=== PATIENT | male | born 1950 | race Native Hawaiian/Other Pacific Islander ===

== ENCOUNTER 2019-05-07 21:01 | Inpatient (IN) | payer MEDICARE, MEDICAID ==
[~2019-05-07] VITALS: Ht 182.9 cm; Wt 86.6 kg
[~2019-05-07 21:01] MED LIST: levetiracetam-NS 1000mg/100ml 100 ML IV ONE
--- NOTE | 2019-05-07 21:12 | NUR ---
arrived for level 1 stroke with last known well at 1999 per pts son. Pt found confused with left sided weakness at 2014 and pt was found incontinent of urine.H/O prior stroke, traumatic head injury with brain bleeding some 5 years ago. Current smoker, seizure history, on Keppra and dilantin. Currently pt is awake, confused, oriented to person, knows age, not month of year. Moves right side well, unable to move left leg, no movement against gravity. Able to move left hand off bed and bend at elbow cannot lift arm off bed. Able to track side to side. 2119 Tele neuro exam with Dr Majano began. Family summoned to bedside. Last known well has changed to 193. [address] for CTA per neurology recommendation. 0 Improving left arm strength, able to voluntarily lift left arm off bed, no change left leg. 2230 Sensory loss left face, arm and leg, extinguishes on the left over face,arm and leg. No field cut noted. 223 call to soc to report findings. 2240 pt seen lifting left leg, did no to command twice, lift and held for 5 seconds. Repeat consult cancelled for now. family at bedside.
[2019-05-07 21:27] LABS: HEMOGLOBIN 17.1 g/dl (14.0-17.9); NEUTROPHILS # (AUTO) 9.7 X10'3 (1.8-7.7)
[2019-05-07 21:29] LABS: ALANINE AMINOTRANSFERASE 41 U/L (12-78); ALBUMIN 3.6 G/DL (3.4-5.0); ALBUMIN/GLOBULIN RATIO 0.8 (1.1-1.5); ALKALINE PHOSPHATASE 82 IU/L (46-116); ANION GAP 5 (8-16); ASPARTATE AMINO TRANSFERASE 29 U/L (10-37); BASOPHILS % (AUTO) 0.3 % (0-1); BILIRUBIN,TOTAL 0.3 MG/DL (0.1-1.0); BLOOD UREA NITROGEN 17 MG/DL (7-18); BUN/CREATININE RATIO 15.9 (5.4-32.0); CALCIUM 8.6 MG/DL (8.5-10.1); CHLORIDE 103 MMOL/L (99-107); CREATININE 1.07 MG/DL (0.60-1.10); EOSINOPHILS % (AUTO) 0.1 % (0-6); GLUCOSE 134 MG/DL (70-104); HEMATOCRIT 51.5 % (42.0-52.0); LYMPHOCYTES # (AUTO) 0.9 X10'3 (1.1-4.8); LYMPHOCYTES % (AUTO) 8.5 % (21-51); MEAN CORPUSCULAR HEMOGLOBIN 32.6 PG (27.0-31.0); MEAN CORPUSCULAR HGB CONC 33.3 g/dL (33.0-36.5); MEAN PLATELET VOLUME 8.1 FL (7.4-10.4); MONOCYTES # (AUTO) 0.5 X10'3 (0-0.9); MONOCYTES % (AUTO) 4.2 % (2-12); NEUTROPHILS % (AUTO) 86.9 % (42-75); PLATELET COUNT 248 X10'3 (140-440); POTASSIUM 4.3 MMOL/L (3.5-5.1); RED BLOOD COUNT 5.25 X10'6 (4.70-6.10); RED CELL DISTRIBUTION WIDTH 13.7 % (11.5-14.5); SODIUM 141 MMOL/L (135-145); TOTAL CARBON DIOXIDE 33.1 MMOL/L (24-32); TOTAL PROTEIN 7.9 G/DL (6.4-8.2); WHITE BLOOD COUNT 11.1 X10'3 (4.5-11.0); eGFR 69 ML/MIN
[2019-05-07 21:30] LABS: PARTIAL THROMBOPLASTIN TIME 28 SECONDS (22-32)
[2019-05-07 21:33] LABS: TROPONIN I 0.16 NG/ML (0.0-0.05)
[2019-05-07] MEDS ORDERED: iohexol 350MG/ML 100ml bottle IV ONE (21:51)
[2019-05-07] MEDS ORDERED: nitroGLYCERIN 0.4mg/hour patch TD ONE (22:20)
[2019-05-07 22:23] LABS: PHENYTOIN (DILANTIN) 19.4 UG/ML (10.0-20.0)
[2019-05-07 22:38] LABS: CLARITY,URINE CLEAR (Clear); COLOR,URINE YELLOW (Yellow); GLUCOSE, URINE NEGATIVE (Neg); KETONES,URINE NEGATIVE (Neg); LEUKOCYTE ESTERASE ,URINE NEGATIVE (Neg); NITRITES, URINE NEGATIVE (Neg); OCCULT BLOOD,URINE TRACE-INTACT (Neg); PH,URINE 7.5 (4.8-8.0); PROTEIN,URINE TRACE mg/dl (Neg); UROBILINOGEN,URINE 0.2 E.U/dL (0.2-1.0)
[2019-05-07 22:42] LABS: URINE AMPHETAMINE SCREEN NEGATIVE (Neg); URINE BARBITUATE SCREEN NEGATIVE (Neg); URINE BENZODIAZEPINES SCREEN NEGATIVE (Neg); URINE CANNABINOID SCREEN NEGATIVE (Neg); URINE COCAINE SCREEN NEGATIVE (Neg); URINE METHADONE SCREEN NEGATIVE (Neg); URINE OPIATE SCREEN NEGATIVE (Neg); URINE PHENCYCLIDINE SCREEN NEGATIVE (Neg)
[2019-05-07 22:44] LABS: UA COLLECTION TYPE STRAIGHT CATH
[2019-05-07 22:46] LABS: AMORPHOUS PHOSPHATES 1+; BACTERIA,URINE NONE SEEN /HPF (Neg); MUCUS STRANDS NONE SEEN /LPF (Neg); RBC,URINE 0-2 /HPF (0-2); SQUAMOUS EPITHELIAL CELL,UR NONE SEEN /LPF (FEW); WBC,URINE 0-4 /HPF (0-4)
[2019-05-07] MEDS ORDERED: aspirin 81mg tab.chew PO ONE (23:05)
[2019-05-07] MEDS ORDERED: acetaminophen 325mg tablet PO ONE (23:10)
--- NOTE | 2019-05-07 23:32 | NUR ---
Family updated on POC. Patient is resting comfortably in bed at this time.
[2019-05-07] MEDS ORDERED: potassium CL 10mEq/100ml bag 100 ML IV PRN ×2 (23:45)
[2019-05-07] MEDS ORDERED: magnesium 2GM in 50ml NS 50 ML IV PRN (23:45)
[2019-05-07] MEDS ORDERED: ondansetron/PF 4mg/2ml inj IV PRN (23:45)
[2019-05-07] MEDS ORDERED: magnesium Cl slow-release 64mg tablet PO PRN (23:45)
[2019-05-07] MEDS ORDERED: magnesium 4gm in 100ml NS 100 ML IV PRN (23:45)
[2019-05-07] MEDS ORDERED: potassium Cl 20 mEq SR tablet PO PRN ×2 (23:45)
--- NOTE | 2019-05-08 | NUR ---
1240 bedside report to Elaine.
[2019-05-08] MEDS ORDERED: LEVE100S PO (00:15)
[2019-05-08] MEDS ORDERED: PHEN100C4 PO (00:15)
[2019-05-08 00:47] VITALS: BP 114/72
[2019-05-08] MEDS: LORazepam 2 mg/ml vial IV PRN ×2 (01:49→08:36)
[2019-05-08 02:00] VITALS: BP 114/63
[2019-05-08 03:32] LABS: BASOPHILS # (AUTO) 0.1 X10'3 (0-0.2); BASOPHILS % (AUTO) 0.8 % (0-1); EOSINOPHILS # (AUTO) 0.1 X10'3 (0-0.9); EOSINOPHILS % (AUTO) 0.4 % (0-6); HEMOGLOBIN 15.7 g/dl (14.0-17.9); LYMPHOCYTES # (AUTO) 3.5 X10'3 (1.1-4.8); LYMPHOCYTES % (AUTO) 24.4 % (21-51); MEAN CORPUSCULAR HEMOGLOBIN 32.5 PG (27.0-31.0); MEAN CORPUSCULAR HGB CONC 33.3 g/dL (33.0-36.5); MEAN CORPUSCULAR VOLUME 97.4 FL (78-98); MEAN PLATELET VOLUME 7.5 FL (7.4-10.4); MONOCYTES # (AUTO) 1.3 X10'3 (0-0.9); MONOCYTES % (AUTO) 9.2 % (2-12); NEUTROPHILS # (AUTO) 9.3 X10'3 (1.8-7.7); NEUTROPHILS % (AUTO) 65.2 % (42-75); PLATELET COUNT 229 X10'3 (140-440); RED BLOOD COUNT 4.82 X10'6 (4.70-6.10); RED CELL DISTRIBUTION WIDTH 13.3 % (11.5-14.5); WHITE BLOOD COUNT 14.3 X10'3 (4.5-11.0)
[2019-05-08 03:49] LABS: ALBUMIN 3.2 G/DL (3.4-5.0); ANION GAP 8 (8-16); BLOOD UREA NITROGEN 19 MG/DL (7-18); BUN/CREATININE RATIO 19.4 (5.4-32.0); CALCIUM 8.1 MG/DL (8.5-10.1); CHLORIDE 103 MMOL/L (99-107); CREATININE 0.98 MG/DL (0.60-1.10); GLUCOSE 132 MG/DL (70-104); POTASSIUM 3.9 MMOL/L (3.5-5.1); SODIUM 138 MMOL/L (135-145); TOTAL CARBON DIOXIDE 27.5 MMOL/L (24-32); eGFR 77 ML/MIN
--- NOTE | 2019-05-08 06:35 | NUR ---
Problems reprioritized. Patient report given, questions answered & plan of care reviewed with fercho Alexander.
[2019-05-08 07:01] VITALS: BP 109/63
[2019-05-08] MEDS: K and/or MAG REPLACEMENT MC SCH (08:00)
[2019-05-08 10:00] VITALS: BP 113/63
[2019-05-08] MEDS ORDERED: CefTRIAXone/D5W-Rocephin 1gm 50 ML IV ONE (10:30)
[2019-05-08] MEDS ORDERED: phenytoin sod ER 100mg capsule PO SCH (10:35)
[2019-05-08] MEDS ORDERED: levetiracetam inj 500 MG in normal saline 100ml IV soln 95 ML IV ONE ×2 (10:35→11:00)
[2019-05-08] MEDS ORDERED: LEVE500T PO (10:53)
[2019-05-08] MEDS ORDERED: LORazepam 2 mg/ml vial IM ONE (11:25)
[2019-05-08] MEDS ORDERED: aspirin 81mg tablet.DR PO ONE (15:35)
--- NOTE | 2019-05-08 15:49 | NUR ---
MRI + for subacute infarct left frontal lobe. Spoke with Dr Bond. He will add Plavix as pt has been on 81mg ASA at home for some time. Dr Diane will order lipid profile. Pt strength improving. Able to lift both left arm and leg off bed and hold, the arm for 10 sec, the leg for 5, though drift seen in both. Sedated for MRI, generally drowzy but will follow simple commands. Addendum: 05/08/19 at 1558 by Mary Yun RN Of note, right frontal lobe subacute infarct, not left.
[2019-05-08 16:18] LABS: CHOL/HDL RATIO 2.9 (0.00-4.99); CHOLESTEROL 164 MG/DL (0-200); HDL CHOLESTEROL 56 MG/DL (35-60); LDL CHOLESTEROL 98 MG/DL (50-100); TRIGLYCERIDES 96 MG/DL (20-135)
[2019-05-08] MEDS: clopidogrel 75mg tablet PO SCH (17:38)
[2019-05-08 18:00] VITALS: BP 105/58
[2019-05-08] MEDS ORDERED: levetiracetam inj 500 MG in normal saline 100ml IV soln 95 ML IV SCH (20:00)
[2019-05-08] MEDS: phenytoin sod ER 100mg capsule PO SCH (20:11)
[2019-05-08] MEDS: lactobacillus rhamnosus 10,000 MMU CELLS/CAPSULE PO SCH (20:12)
[2019-05-08] MEDS: levetiracetam 250mg tablet PO SCH (20:12)
[2019-05-08] MEDS: famotidine 20mg tablet PO SCH (20:51)
[2019-05-08 22:00] VITALS: BP 117/70
[2019-05-09 02:00] VITALS: BP 129/72
[2019-05-09 06:00] VITALS: BP 128/75
--- NOTE | 2019-05-09 06:15 | NUR ---
Patient in room ORTH[facility] 4010. I have received report from YOAN Costello and had the opportunity to ask questions and assume patient care.
--- NOTE | 2019-05-09 06:30 | NUR ---
Patient in room ORTHO 4010. I have received report from PAULA MILTON and had the opportunity to ask questions and assume patient care.
[2019-05-09] MEDS: CefTRIAXone/D5W-Rocephin 1gm 50 ML IV SCH (07:46)
[2019-05-09] MEDS: lactobacillus rhamnosus 10,000 MMU CELLS/CAPSULE PO SCH ×2 (07:46→20:00)
[2019-05-09] MEDS: levetiracetam 250mg tablet PO SCH ×2 (07:47→21:22)
[2019-05-09] MEDS: clopidogrel 75mg tablet PO SCH (07:47)
[2019-05-09] MEDS: aspirin 81mg tablet.DR PO SCH (07:47)
[2019-05-09] MEDS: phenytoin sod ER 100mg capsule PO SCH ×2 (07:47→21:21)
[2019-05-09] MEDS: K and/or MAG REPLACEMENT MC SCH (08:00)
--- NOTE | 2019-05-09 08:10 | NUR ---
PATIENT HAD AN EPISODE OF STARING OFF, UNRESPONSIVE AND TEARFUL. TURNED OVER ON HIS SIDE AND CURLED UP IN A BALL. ATIVAN WAS GIVEN PER ORDERS FOR SEIZURE. PATIENT AWOKE 10 MINUTES LATE TO USE THE URINAL. STATED HE HAD A SEIZURE. HE STATED HE CAN FEEL IT COMING ON BUT IS UNABLE TO COMMUNICATE TO STAFF. NOTIFIED. WILL CONTINUE TO MONITOR.
[2019-05-09] MEDS: LORazepam 2 mg/ml vial IV PRN ×3 (08:15→23:04)
[2019-05-09 08:41] LABS: BASOPHILS # (AUTO) 0.1 X10'3 (0-0.2); BASOPHILS % (AUTO) 0.5 % (0-1); EOSINOPHILS # (AUTO) 0.1 X10'3 (0-0.9); EOSINOPHILS % (AUTO) 0.5 % (0-6); HEMATOCRIT 45.5 % (42.0-52.0); HEMOGLOBIN 15.1 g/dl (14.0-17.9); LYMPHOCYTES # (AUTO) 2.4 X10'3 (1.1-4.8); LYMPHOCYTES % (AUTO) 18.4 % (21-51); MEAN CORPUSCULAR HEMOGLOBIN 32.7 PG (27.0-31.0); MEAN CORPUSCULAR HGB CONC 33.2 g/dL (33.0-36.5); MEAN CORPUSCULAR VOLUME 98.3 FL (78-98); MEAN PLATELET VOLUME 7.7 FL (7.4-10.4); MONOCYTES # (AUTO) 1.3 X10'3 (0-0.9); MONOCYTES % (AUTO) 10.1 % (2-12); NEUTROPHILS # (AUTO) 9.1 X10'3 (1.8-7.7); NEUTROPHILS % (AUTO) 70.5 % (42-75); PLATELET COUNT 208 X10'3 (140-440); RED BLOOD COUNT 4.62 X10'6 (4.70-6.10); RED CELL DISTRIBUTION WIDTH 13.5 % (11.5-14.5); WHITE BLOOD COUNT 12.9 X10'3 (4.5-11.0)
[2019-05-09 08:43] LABS: ANION GAP 7 (8-16); BLOOD UREA NITROGEN 14 MG/DL (7-18); BUN/CREATININE RATIO 17.5 (5.4-32.0); CALCIUM 8.1 MG/DL (8.5-10.1); CHLORIDE 104 MMOL/L (99-107); GLUCOSE 158 MG/DL (70-104); MAGNESIUM 1.9 MG/DL (1.5-2.4); POTASSIUM 3.8 MMOL/L (3.5-5.1); SODIUM 139 MMOL/L (135-145); TOTAL CARBON DIOXIDE 28.3 MMOL/L (24-32); eGFR > 90 ML/MIN
--- NOTE | 2019-05-09 09:09 | NUR ---
promotional table spacer PAGER ID: [phone] MESSAGE: NURIA [id number] RE: [facility] [id number] PATIENT HAD A SEIZURE LIKE EPISODE THIS AM. NO EEG ORDERED.
[2019-05-09 10:00] VITALS: BP 132/77
[2019-05-09] MEDS ORDERED: atorvastatin 20mg tablet PO SCH (11:25)
[2019-05-09 14:00] VITALS: BP 119/72
--- NOTE | 2019-05-09 14:11 | NUR ---
Dr Diane requested SOC follow up for seizure and stroke care. Consult set up with service. Necessary paper work faxed as requested.
--- NOTE | 2019-05-09 16:45 | NUR ---
PATIENT HAD A SEIZURE THAT LASTED 3 MINUTES. NO INJURIES ACQUIRED. ATIVAN GIVEN.
--- NOTE | 2019-05-09 17:58 | NUR ---
Student documentation: I have reviewed and agree with all interventions, assessments performed and documented by RICHY MILTON.
[2019-05-09 18:00] VITALS: BP 124/73
--- NOTE | 2019-05-09 18:10 | NUR ---
Problems reprioritized. Patient report given, questions answered & plan of care reviewed with YOAN Hernandez.
--- NOTE | 2019-05-09 19:00 | NUR ---
Patient in room ORTHO 4010. I have received report from Rasheed MILTON and had the opportunity to ask questions and assume patient care.
[2019-05-09] MEDS: metoprolol tartrate 12.5mg (1/2 tablet) PO SCH (21:20)
[2019-05-09] MEDS: famotidine 20mg tablet PO SCH (21:22)
[2019-05-09 22:00] VITALS: BP 127/70
--- NOTE | 2019-05-09 22:30 | NUR ---
Family came out of the room and said the pt was having a seizure. PT was laying in bed nonresponsive fro 6 minutes, Pt received IV ativan., he later started to wake up and regained consciousness within a half hour he then wanted to get out of bed ad "take a walk" setting off his bed alarm. had an aide sit at his bedside.
[2019-05-10 06:00] VITALS: BP 138/93
[2019-05-10 06:27] LABS: ALBUMIN 2.8 G/DL (3.4-5.0); ANION GAP 7 (8-16); BLOOD UREA NITROGEN 13 MG/DL (7-18); BUN/CREATININE RATIO 17.6 (5.4-32.0); CALCIUM 8.1 MG/DL (8.5-10.1); CHLORIDE 108 MMOL/L (99-107); CREATININE 0.74 MG/DL (0.60-1.10); GLUCOSE 114 MG/DL (70-104); MAGNESIUM 1.9 MG/DL (1.5-2.4); SODIUM 143 MMOL/L (135-145); TOTAL CARBON DIOXIDE 27.9 MMOL/L (24-32); eGFR > 90 ML/MIN
[2019-05-10 06:30] LABS: POTASSIUM 4.2 MMOL/L (3.5-5.1)
--- NOTE | 2019-05-10 06:30 | NUR ---
Patient in room ORTHO 4010. I have received report from David MILTON and had the opportunity to ask questions and assume patient care.
[2019-05-10 06:31] LABS: BASOPHILS % (AUTO) 0.4 % (0-1); EOSINOPHILS # (AUTO) 0.2 X10'3 (0-0.9); EOSINOPHILS % (AUTO) 2.3 % (0-6); HEMOGLOBIN 15.1 g/dl (14.0-17.9); LYMPHOCYTES # (AUTO) 2.2 X10'3 (1.1-4.8); MEAN CORPUSCULAR HEMOGLOBIN 32.8 PG (27.0-31.0); MEAN CORPUSCULAR HGB CONC 33.5 g/dL (33.0-36.5); MEAN CORPUSCULAR VOLUME 97.9 FL (78-98); MEAN PLATELET VOLUME 7.7 FL (7.4-10.4); MONOCYTES # (AUTO) 1.3 X10'3 (0-0.9); MONOCYTES % (AUTO) 12.4 % (2-12); NEUTROPHILS # (AUTO) 6.7 X10'3 (1.8-7.7); NEUTROPHILS % (AUTO) 63.9 % (42-75); PLATELET COUNT 201 X10'3 (140-440); RED CELL DISTRIBUTION WIDTH 13.2 % (11.5-14.5); WHITE BLOOD COUNT 10.5 X10'3 (4.5-11.0)
[2019-05-10 07:01] VITALS: BP 138/93
--- NOTE | 2019-05-10 07:17 | NUR ---
PAGER ID: [phone] MESSAGE: NURIA [id number] RE: FAUSTO CRESPO HAS RECOMMENDATIONS FOR INCREASING SEIZURE MEDS. BILLIE I ADD THOSE?
[2019-05-10] MEDS ORDERED: atorvastatin 20mg tablet PO SCH (08:00)
[2019-05-10] MEDS: K and/or MAG REPLACEMENT MC SCH (08:00)
[2019-05-10] MEDS ORDERED: levetiracetam 250mg tablet PO SCH (08:00)
[2019-05-10] MEDS: CefTRIAXone/D5W-Rocephin 1gm 50 ML IV SCH (08:16)
[2019-05-10] MEDS: lactobacillus rhamnosus 10,000 MMU CELLS/CAPSULE PO SCH (08:16)
[2019-05-10] MEDS: clopidogrel 75mg tablet PO SCH (08:16)
[2019-05-10] MEDS: phenytoin sod ER 100mg capsule PO SCH (08:17)
[2019-05-10] MEDS: aspirin 81mg tablet.DR PO SCH (08:18)
[2019-05-10] MEDS: metoprolol tartrate 12.5mg (1/2 tablet) PO SCH (08:20)
[2019-05-10 08:43] LABS: HEMOGLOBIN A1C 5.8 % (4.5-6.2)
[2019-05-10 10:13] VITALS: BP 140/87
== END 2019-05-10 14:36 | DRG 65 ==
LOC: ER 21:02 → OBSVTOIN 23:45 → ORTHO 4S 23:45 → CMPBEDREQ 05-08 00:54
PROVIDERS: ADMIT Internal Medicine; ATTEND Family Medicine
PROC: B3251ZZ Computerized Tomography (CT Scan) of Bilateral Common Carotid Arteries using Low Osmolar Contrast (ICD-10-PCS; 2019-05-07)
PROC: B32G1ZZ Computerized Tomography (CT Scan) of Bilateral Vertebral Arteries using Low Osmolar Contrast (ICD-10-PCS; 2019-05-07)
PROC: B3281ZZ Computerized Tomography (CT Scan) of Bilateral Internal Carotid Arteries using Low Osmolar Contrast (ICD-10-PCS; 2019-05-07)
PROC: 4A10X4Z Monitoring of Central Nervous Electrical Activity, External Approach (ICD-10-PCS; principal; 2019-05-10)
DX: I63.9 Cerebral infarction, unspecified (principal); G81.94 Hemiplegia, unspecified affecting left nondominant side; G40.409 Other generalized epilepsy and epileptic syndromes, not intractable, without status epilepticus; D72.829 Elevated white blood cell count, unspecified; E78.5 Hyperlipidemia, unspecified; F17.290 Nicotine dependence, other tobacco product, uncomplicated; G93.89 Other specified disorders of brain; R32 Unspecified urinary incontinence; Z86.73 Personal history of transient ischemic attack (TIA), and cerebral infarction without residual deficits
CPT/HCPCS: 36415; 70450; 70496; 70498; 70544; 70551; 71045; 76937; 80048; 80053; 80061; 80177; 80185; 80305; 81001; 83036; 83605; 83735; 84145; 84443; 84484; 85025; 85610; 85730; 87040; 87081; 93005; 93306; 95816; 96365; 97110; 97116; 97163; 97530; 99285; G0378; J0696; J1953; J2060; Q9967

== ENCOUNTER 2019-05-14 12:29 | Emergency (ER) | payer MEDICARE, MEDICAID ==
[~2019-05-14] VITALS: Ht 167.6 cm; Wt 85.9 kg
[~2019-05-14 12:29] MED LIST changes: +LEVE500T PO; +PHEN100C4 PO; -levetiracetam-NS 1000mg/100ml 100 ML IV ONE
[2019-05-14] MEDS ORDERED: LORazepam 2 mg/ml vial IV ONE (12:40)
[2019-05-14] MEDS ORDERED: normal saline 1000ML IV soln IVB ONE (12:40)
[2019-05-14 13:04] LABS: CLARITY,URINE CLEAR (Clear); COLOR,URINE YELLOW (Yellow); GLUCOSE, URINE NEGATIVE (Neg); KETONES,URINE NEGATIVE (Neg); LEUKOCYTE ESTERASE ,URINE NEGATIVE (Neg); NITRITES, URINE NEGATIVE (Neg); OCCULT BLOOD,URINE NEGATIVE (Neg); PROTEIN,URINE NEGATIVE (Neg); UA COLLECTION TYPE CLN CATCH MIDSTREAM; UROBILINOGEN,URINE 0.2 E.U/dL (0.2-1.0)
[2019-05-14 13:05] LABS: BASOPHILS # (AUTO) 0.1 X10'3 (0-0.2); LYMPHOCYTES # (AUTO) 2.7 X10'3 (1.1-4.8); MONOCYTES # (AUTO) 1.1 X10'3 (0-0.9)
[2019-05-14 13:07] LABS: BASOPHILS % (AUTO) 0.8 % (0-1); EOSINOPHILS # (AUTO) 0.4 X10'3 (0-0.9); EOSINOPHILS % (AUTO) 4.2 % (0-6); HEMATOCRIT 53.6 % (42.0-52.0); LYMPHOCYTES % (AUTO) 28.6 % (21-51); MEAN CORPUSCULAR HEMOGLOBIN 33.7 PG (27.0-31.0); MEAN CORPUSCULAR HGB CONC 34.5 g/dL (33.0-36.5); MEAN CORPUSCULAR VOLUME 97.6 FL (78-98); MEAN PLATELET VOLUME 7.1 FL (7.4-10.4); MONOCYTES % (AUTO) 11.3 % (2-12); NEUTROPHILS # (AUTO) 5.2 X10'3 (1.8-7.7); NEUTROPHILS % (AUTO) 55.1 % (42-75); PLATELET COUNT 266 X10'3 (140-440); RED BLOOD COUNT 5.49 X10'6 (4.70-6.10); RED CELL DISTRIBUTION WIDTH 13.6 % (11.5-14.5); WHITE BLOOD COUNT 9.4 X10'3 (4.5-11.0)
[2019-05-14 13:16] LABS: ALANINE AMINOTRANSFERASE 52 U/L (12-78); ALBUMIN 3.9 G/DL (3.4-5.0); ALBUMIN/GLOBULIN RATIO 0.8 (1.1-1.5); ALKALINE PHOSPHATASE 96 IU/L (46-116); ANION GAP 7 (8-16); ASPARTATE AMINO TRANSFERASE 46 U/L (10-37); BILIRUBIN,TOTAL 0.4 MG/DL (0.1-1.0); BLOOD UREA NITROGEN 14 MG/DL (7-18); BUN/CREATININE RATIO 16.1 (5.4-32.0); CALCIUM 9.5 MG/DL (8.5-10.1); CHLORIDE 102 MMOL/L (99-107); CREATININE 0.87 MG/DL (0.60-1.10); GLUCOSE 92 MG/DL (70-104); POTASSIUM 4.2 MMOL/L (3.5-5.1); SODIUM 142 MMOL/L (135-145); TOTAL CARBON DIOXIDE 33.2 MMOL/L (24-32); TOTAL PROTEIN 8.7 G/DL (6.4-8.2); eGFR 88 ML/MIN
[2019-05-14 13:20] LABS: CREATINE KINASE 96 U/L (39-308)
[2019-05-14 13:22] LABS: PHENYTOIN (DILANTIN) 34.2 UG/ML (10.0-20.0)
[2019-05-14 13:37] LABS: HEMOGLOBIN 18.5 g/dl (14.0-17.9)
[2019-05-14 14:08] VITALS: BP 146/77
== END 2019-05-14 14:13 | disposition home or self-care (01) ==
LOC: ER 12:29
DX: G40.909 Epilepsy, unspecified, not intractable, without status epilepticus (principal); D75.1 Secondary polycythemia; G81.94 Hemiplegia, unspecified affecting left nondominant side; E78.5 Hyperlipidemia, unspecified; Z86.73 Personal history of transient ischemic attack (TIA), and cerebral infarction without residual deficits; Z60.2 Problems related to living alone; Z79.899 Other long term (current) drug therapy
CPT/HCPCS: 36415; 71045; 80053; 80185; 81003; 82140; 82550; 85025; 93005; 96374; 99284; J2060; J7030